=== PATIENT | male | born 1965 | race Caucasian/White ===

== ENCOUNTER → 2017-06-06 | Day surgery (SDC) | payer OTHER ==
[~2017-06-06] VITALS: Ht 180.3 cm; Wt 139.7 kg
[~2017-06-06] MED LIST: ANTIVERT/2525 MG PO; ATIVAN0.5 MG PO; CATAFLAM50 MG PO; CELEBREX200 MG PO; CELEXA40 MG PO; LASIX20 MG PO; NAPROXEN D/R500 MG PO; SIMVASTATIN40 MG PO; ZIPRASIDONE HCL60 M1 PO
--- NOTE | ~2017-06-06 | O ---
[place], [place] OPERATIVE NOTE NAME: NIRANJAN HUITRON UNIT #: [id number] ROOM: DOCTOR[facility] BIRTH[facility] [birth year] DOS: 06/06/2017 INDICATIONS: This is a 52-year-old patient who has presented with a history of chronic diarrhea, screening colonoscopy. ALLERGIES: No known medication. FAMILY HISTORY: Noncontributory. PAST SURGICAL HISTORY: Bilateral inguinal hernia, mastectomy, right ear. PAST MEDICAL HISTORY: Depression, hypercholesterolemia, now approximately seen on board. SOCIAL HISTORY: Smoker and one case of beer per week. PROCEDURE: Today's procedure part of investigation is colonoscopy plus biopsy plus polypectomy. PREMEDICATION: Versed and Diprivan. SCOPE: Olympus folding colonoscope 10L video. REPORT: After putting the patient in left lateral position and application of lubricant to the scope, the scope was introduced; thereafter, under direct visualization, advanced through the length of colon without difficulty. Mucosa and vascularity carefully examined and evidence of rare diverticulosis was identified. Biopsy from colon was obtained to rule out collagenous colitis. A polypoid lesion approximately cm 0.2 and cross diameter with a snare polypectomy from sigmoid colon was removed. Base of the cecum explored, appendiceal orifice identified, ileocecal valve was defined. The patient was gradually extubated and tolerated the procedure well. IMPRESSION: 1. Sigmoid colon polyp, status post snare polypectomy. 2. Diverticulosis, mild degree. 3. Status post biopsy randomly ruling out collagenous colitis. PLAN AND DISCUSSION: I am going to advise the patient to abstain from alcohol for a few days until we have the biopsy results. I am going to start him on Questran 1 pack daily as well as Florastor 250 mg b.i.d. for 2 weeks and we will reassess in the office regarding biopsy results and further decision thereafter. I thank you very much indeed for your kind referral. [place], [place] OPERATIVE NOTE NAME: NIRANJAN HUITRON UNIT #: [id number] ROOM: DOCTOR: KATHY AMADO MD BIRTHDATE: [birth year] KATHY AMADO MD CM:OPRECORD:OPERATIVE NOTE [id number] FOREIGN AMADO MD 06/06/17 1640 interface
[2017-06-06 11:30] VITALS: BP 133/85
[2017-06-06 13:50] VITALS: BP 109/63
[2017-06-06 14:05] VITALS: BP 113/69
[2017-06-06 14:20] VITALS: BP 128/83
== END ==
LOC: SDC 06-03 13:15
DX: D12.5 Benign neoplasm of sigmoid colon (principal); K57.30 Diverticulosis of large intestine without perforation or abscess without bleeding; K63.4 Enteroptosis; J44.9 Chronic obstructive pulmonary disease, unspecified; F32.9 Major depressive disorder, single episode, unspecified; F17.210 Nicotine dependence, cigarettes, uncomplicated; E78.00 Pure hypercholesterolemia, unspecified; Z98.890 Other specified postprocedural states

== ENCOUNTER 2019-12-13 09:53 | Emergency (ER) | payer BC ==
[~2019-12-13] VITALS: Ht 180.3 cm; Wt 145.1 kg
[2019-12-13 10:49] LABS: BASO # 0.1 10*3/uL (0.0-0.1); BASO % 0.6 % (0.0-1.0); EOS # 0.4 10*3/uL (0.0-0.4); EOS % 3.6 % (1.0-4.0); HEMATOCRIT 45.9 % (42.0-52.0); LYMPH # 2.3 10*3/uL (1.3-4.4); LYMPH % 21.7 % (27.0-41.0); MEAN CELL VOLUME 96.6 fl (80.0-94.0); MEAN CORPUSCULAR HGB 32.4 pg (27.0-31.0); MEAN CORPUSCULAR HGB CONC 33.6 g/dl (33.0-37.0); MONO # 0.9 10*3/uL (0.1-1.0); MONO % 8.2 % (3.0-9.0); NEUT # 6.8 10*3/uL (2.3-7.9); NEUT % 65.7 % (47.0-73.0); PLATELET COUNT AUTOMATED 185 10*3/uL (130-400); RED BLOOD COUNT 4.75 10*6/uL (4.50-5.90); RED CELL DISTRI WIDTH 13.5 % (0-14.5); WHITE BLOOD COUNT 10.4 10*3/uL (4.8-10.8)
[2019-12-13 11:00] LABS: ACT PARTIAL THROMBO TIME 29.4 SECONDS (20.0-32.1); INTERNATIONAL NORM RATIO 0.9 (2.0-3.5)
[2019-12-13 11:04] LABS: ALBUMIN 3.5 gm/dl (3.1-4.5); ALKALINE PHOSPHATASE 72 U/L (45-117); BUN 19 mg/dl (7-24); CHLORIDE 108 mmol/L (98-107); CREATININE 0.98 mg/dL (0.70-1.30); POTASSIUM 4.1 mmol/L (3.5-5.1); SGOT/AST 10 IU/L (3-35); SGPT/ALT 24 U/L (12-78); SODIUM 138 mmol/L (136-145); TOTAL PROTEIN 6.8 gm/dL (6.4-8.2)
[2019-12-13] MEDS ORDERED: CEPHALEXIN500 M1 PO (11:17)
== END 2019-12-13 11:22 | disposition home or self-care (01) ==
LOC: ED 09:53
PROVIDERS: Nurse Practitioner Family
DX: L03.116 Cellulitis of left lower limb (principal); J44.9 Chronic obstructive pulmonary disease, unspecified; F17.200 Nicotine dependence, unspecified, uncomplicated; Z79.899 Other long term (current) drug therapy

== ENCOUNTER → 2020-10-23 | Outpatient (CLI) | payer OTHER ==
[~2020-10-23] MED LIST changes: +CEPHALEXIN500 M1 PO
[2020-10-23 12:14] LABS: BASO # 0.1 10*3/uL (0.0-0.1); BASO % 0.7 % (0.0-1.0); EOS # 0.5 10*3/uL (0.0-0.4); EOS % 5.5 % (1.0-4.0); HEMATOCRIT 46.3 % (42.0-52.0); LYMPH # 1.9 10*3/uL (1.3-4.4); LYMPH % 20.8 % (27.0-41.0); MEAN CELL VOLUME 97.7 fl (80.0-94.0); MEAN CORPUSCULAR HGB 32.7 pg (27.0-31.0); MEAN CORPUSCULAR HGB CONC 33.5 g/dl (33.0-37.0); MEAN PLATELET VOLUME 10.8 fl (9.6-12.3); MONO # 0.5 10*3/uL (0.1-1.0); MONO % 5.5 % (3.0-9.0); NEUT # 6.2 10*3/uL (2.3-7.9); NEUT % 67.3 % (47.0-73.0); PLATELET COUNT AUTOMATED 207 10*3/uL (130-400); RED BLOOD COUNT 4.74 10*6/uL (4.50-5.90); RED CELL DISTRI WIDTH 13.2 % (0-14.5); WHITE BLOOD COUNT 9.2 10*3/uL (4.8-10.8)
[2020-10-23 12:42] LABS: CHLORIDE 109 mmol/L (98-107); POTASSIUM 3.8 mmol/L (3.5-5.1); SODIUM 141 mmol/L (136-145)
[2020-10-23 12:55] LABS: ALBUMIN 3.6 gm/dl (3.1-4.5); ALKALINE PHOSPHATASE 65 U/L (45-117); BILIRUBIN, DIRECT < 0.1 mg/dL (0.0-0.2); BUN 13 mg/dl (7-24); CREATININE 0.73 mg/dL (0.70-1.30); SGOT/AST 10 IU/L (3-35); SGPT/ALT 26 U/L (12-78); TOTAL PROTEIN 6.6 gm/dL (6.4-8.2)
== END | disposition home or self-care (01) ==
LOC: LAB 11:06
PROVIDERS: ATTEND Podiatrist Foot & Ankle Surgery
DX: B35.1 Tinea unguium (principal)

== ENCOUNTER 2021-12-28 13:38 | Emergency (ER) | payer OTHER ==
[~2021-12-28] VITALS: Ht 177.8 cm; Wt 136.1 kg
[2021-12-28 14:05] LABS: BASO # 0.1 10*3/uL (0.0-0.1); EOS # 0.4 10*3/uL (0.0-0.4); EOS % 4.4 % (1.0-4.0); HEMATOCRIT 45.8 % (42.0-52.0); LYMPH # 2.2 10*3/uL (1.3-4.4); LYMPH % 24.9 % (27.0-41.0); MEAN CORPUSCULAR HGB 33.3 pg (27.0-31.0); MEAN CORPUSCULAR HGB CONC 34.7 g/dl (33.0-37.0); MEAN PLATELET VOLUME 9.8 fl (9.6-12.3); MONO # 0.5 10*3/uL (0.1-1.0); MONO % 5.6 % (3.0-9.0); NEUT # 5.7 10*3/uL (2.3-7.9); NEUT % 63.9 % (47.0-73.0); PLATELET COUNT AUTOMATED 219 10*3/uL (130-400); RED BLOOD COUNT 4.77 10*6/uL (4.50-5.90); RED CELL DISTRI WIDTH 12.8 % (0-14.5); WHITE BLOOD COUNT 8.9 10*3/uL (4.8-10.8)
[2021-12-28 14:28] LABS: ALKALINE PHOSPHATASE 67 U/L (45-117); BUN 16 mg/dl (7-24); CHLORIDE 108 mmol/L (98-107); CREATININE 0.83 mg/dL (0.70-1.30); POTASSIUM 3.8 mmol/L (3.5-5.1); SGOT/AST 13 IU/L (3-35); SGPT/ALT 27 U/L (12-78); SODIUM 140 mmol/L (136-145); TOTAL PROTEIN 6.8 gm/dL (6.4-8.2)
[2021-12-28] MEDS ORDERED: TRAZODONE50 MG PO (14:34)
[2021-12-28] MEDS ORDERED: ROPINIROLE HYD0.5 MG PO (14:34)
[2021-12-28 14:36] LABS: ACT PARTIAL THROMBO TIME 30.6 SECONDS (20.0-32.1)
[2021-12-28] MEDS ORDERED: TYLENOL325 M2 PO (14:37)
== END 2021-12-28 17:28 | disposition home or self-care (01) ==
LOC: ED 13:38
PROVIDERS: Emergency Medicine
DX: R06.02 Shortness of breath (principal); E66.01 Morbid (severe) obesity due to excess calories; J44.9 Chronic obstructive pulmonary disease, unspecified; F17.210 Nicotine dependence, cigarettes, uncomplicated; Z79.899 Other long term (current) drug therapy; Z98.890 Other specified postprocedural states